=== PATIENT | male | born 1960 | race Caucasian/White ===

== ENCOUNTER 2017-04-27 11:24 | Day surgery (SDC) ==
[2017-04-27] MEDS ORDERED: DIPRIVAN 20 ML VIAL IVP ONE (12:05)
[2017-04-27] MEDS ORDERED: VERSED ONE (12:05)
[2017-04-27] MEDS ORDERED: LIDOCAINE 1% 20 ML MDV ID ONE (12:09)
[2017-04-27 15:37] VITALS: BP 138/78; TEMP 98
--- NOTE | 2017-04-28 13:44 | OP ---
PROCEDURE: COLONOSCOPY TO THE CECUM. ENDOSCOPIST: Yovani WALDRON M.D. INDICATION: SCREENING; NO PREVIOUS EXAMINATION. INSTRUMENT: [id number]-[id number]. MEDICATION: PER ANESTHESIA. PROCEDURE: The patient was positioned for colonoscopy. The digital rectal exam was negative. The colonoscope was inserted through the anus and advanced to the cecum. The cecum was identified using the ileocecal valve and the appendiceal orifice as landmarks. The scope was slowly withdrawn through an adequately prepped colon. A small polyp is removed using snare cautery in the transverse colon. No other abnormalities were noted. The retroflex exam is otherwise normal with exception of hemorrhoids. He tolerated the procedure without immediate complication. Withdrawal time 11 minutes, 54 seconds. PLAN: 1. Suggest repeat colonoscopy in 5 years. CC: DR. KEVEN DAVE
== END 2017-04-27 13:20 | disposition home or self-care (01) ==
LOC: SURG 11:24
PROVIDERS: ATTEND Internal Medicine Gastroenterology
DX: Z12.11 Encounter for screening for malignant neoplasm of colon (principal); D12.3 Benign neoplasm of transverse colon; K64.9 Unspecified hemorrhoids